=== PATIENT | male | born 1995 | race Caucasian/White ===

== ENCOUNTER 2018-02-04 18:04 | Emergency (ER) | payer BC ==
[~2018-02-04] VITALS: Ht 175.3 cm; Wt 80.0 kg
[2018-02-04] MEDS ORDERED: ULTRAM50 M1 PO (20:07)
[2018-02-04 20:25] VITALS: BP 128/78
== END 2018-02-04 20:25 | disposition home or self-care (01) | DRG 605 ==
LOC: ED 18:04
DX: S80.12XA Contusion of left lower leg, initial encounter (principal); J45.909 Unspecified asthma, uncomplicated; W23.0XXA Caught, crushed, jammed, or pinched between moving objects, initial encounter